=== PATIENT | female | born 1965 | race Caucasian/White ===

== ENCOUNTER → 2022-07-19 14:18 | Outpatient (CLI) | payer SELFPAY ==
--- NOTE | 2022-07-19 14:26 | MM_ITS ---
PROCEDURE INFORMATION: Exam: Right Diagnostic Breast Tomosynthesis Exam date and time: 07/19/2022 2:17 PM Age: 57 years old Clinical indication: Recall the basis of screening mammogram 06/26/2022 for further evaluation subareolar right focal asymmetry. TECHNIQUE: Imaging protocol: Right Diagnostic tomosynthesis and 2D mammography including computer-aided detection (CAD) when performed. Unilateral or bilateral exam. COMPARISON: [facility] MAMMO W/CAD BILAT 06/26/2022 4:39 PM FINDINGS: MAMMOGRAPHY: Several 0.3-0.5 cm oval masses in the retroareolar region, middle 3rd. No suspicious mass or focal asymmetry. IMPRESSION: Patient will be recalled for right sonography for further evaluation of possible masses in the right retroareolar region. ASSESSMENT: BI-RADS Category 0: Incomplete- Need Additional Imaging Evaluation and/or Prior Mammograms for Comparison
== END ==
PROVIDERS: PCP Nurse Practitioner Family; Visit Provider Nurse Practitioner Family
DX: R92.8 Other abnormal and inconclusive findings on diagnostic imaging of breast (principal)
CPT/HCPCS: 77061; 77065; G0279

== ENCOUNTER → 2022-08-17 13:15 | Outpatient (CLI) | payer SELFPAY ==
--- NOTE | 2022-08-17 13:23 | US_ITS ---
PROCEDURE INFORMATION: Exam: US Right Breast, Complete Exam date and time: 08/17/2022 1:43 PM Age: 57 years old Clinical indication: Patient recalled for further evaluation of nonspecific subcentimeter nodularity in the right retroareolar breast TECHNIQUE: Imaging protocol: Complete ultrasound of all four quadrants of the Right breast and the retroareolar regions, including ultrasound of the axilla when performed. COMPARISON: MG MM DIG MAMM DX UNILAT RT CAD 07/19/2022 2:17 PM FINDINGS: Breast: Sonographic images of the right breast including the retroareolar region, all 4 quadrants and the axilla do not demonstrate any solid masses. Minimal subcentimeter cystic change is noted in the retroareolar region. 0.6 cm cyst in the 12 o'clock axis 6 cm from the nipple No architectural distortion or acoustical shadowing. No skin thickening or axillary adenopathy. IMPRESSION: Minimal benign cystic change. A six-month follow-up diagnostic right mammogram is recommended to ensure stability of the pattern identified unless otherwise clinically indicated. ASSESSMENT: BI-RADS Category 3: Probably benign
== END ==
PROVIDERS: PCP Nurse Practitioner Family; Visit Provider Nurse Practitioner Family
DX: R92.8 Other abnormal and inconclusive findings on diagnostic imaging of breast (principal)
CPT/HCPCS: 76641

== ENCOUNTER → 2023-02-12 15:08 | Outpatient (CLI) | payer SELFPAY ==
--- NOTE | 2023-02-12 16:00 | MM_ITS ---
PROCEDURE INFORMATION: Exam: MG Right Diagnostic Breast Tomosynthesis Exam date and time: 02/12/2023 3:48 PM Age: 57 years old Clinical indication: Six-month follow-up for probably benign sub cm nodularity in the right retroareolar region from 07/19/2022. TECHNIQUE: Imaging protocol: Right Diagnostic tomosynthesis and 2D mammography including computer-aided detection (CAD) when performed. Unilateral or bilateral exam. COMPARISON: 1. MG MM DIG MAMM DX UNILAT RT CAD 07/19/2022 2:17 PM 2. MG [facility] MAMMO W/CAD BILAT 06/26/2022 4:39 PM 3. US BREAST RT COMPLETE 08/17/2022 1:43 PM FINDINGS: MAMMOGRAPHY: Breast composition: There are scattered areas of fibroglandular density. Mass: Stable 0.3-0.5 cm masses no retroareolar region (and scattered) since 06/26/2022. Architectural distortion: None. Calcifications: No suspicious calcifications. Asymmetric density: None. Skin thickening: None. Axillary adenopathy: None. IMPRESSION: Probably benign scattered sub cm masses, in the retroareolar region shown to be cystic changes on sonography from 08/17/2022. Suggest continued six-month follow-up mammography when the patient returns for bilateral mammogram in June 2023, unless otherwise clinically indicated. ASSESSMENT: BI-RADS Category 3: Probably benign
== END ==
PROVIDERS: PCP Nurse Practitioner Family; Visit Provider Nurse Practitioner Family
DX: R92.8 Other abnormal and inconclusive findings on diagnostic imaging of breast (principal)
CPT/HCPCS: 77061; 77065; G0279

== ENCOUNTER 2024-04-06 16:41 | Outpatient (CLI) | payer SELFPAY ==
--- NOTE | 2024-04-06 16:52 | MM_ITS ---
PROCEDURE INFORMATION: Exam: MG Bilateral Screening 3D Mammography Exam date and time: 04/06/2024 4:36 PM Age: 58 years old Clinical indication: Screening examination; Additional info: Scrrening, left nipple discharge. Family history of breast carcinoma. TECHNIQUE: Imaging protocol: Bilateral Screening tomosynthesis and 2D mammography including computer-aided detection (CAD) when performed. COMPARISON: 1. MG MM DIG MAMM DX UNILAT RT CAD 02/12/2023 3:48 PM 2. MG MM DIG MAMM DX UNILAT RT CAD 07/19/2022 2:17 PM 3. MG [facility] MAMMO W/CAD BILAT 06/26/2022 4:39 PM FINDINGS: MAMMOGRAPHY: Breast composition: There are scattered areas of fibroglandular density. Mass: No suspicious masses. Architectural distortion: No suspicious distortion. Calcifications: No suspicious calcifications. Asymmetric density: None. Skin thickening: None. Axillary adenopathy: None. IMPRESSION: 1. No mammographic evidence of malignancy. Annual screening is recommended unless otherwise clinically indicated. 2. Given the reported risk factors for this patient, a breast cancer risk assessment may prove useful for further e valuation. ASSESSMENT: BI-RADS Category 1: Negative
== END 2024-04-06 23:59 | disposition home or self-care (01) ==
LOC: RAD 16:42
PROVIDERS: PCP Nurse Practitioner; Visit Provider Nurse Practitioner
DX: N64.52 Nipple discharge (principal)
CPT/HCPCS: 77063; 77067